=== PATIENT | female | born 1995 | race Caucasian/White ===

== ENCOUNTER 2019-11-09 11:35 | Outpatient (CLI) | payer OTHER | END 2019-11-09 12:46 | disposition home or self-care (01) | LOC: LC 11:35 | PROVIDERS: ATTEND Obstetrics & Gynecology Gynecology | PROC: 4A1HXCZ Monitoring of Products of Conception, Cardiac Rate, External Approach (ICD-10-PCS; principal; 2019-11-09) | DX: Z36.89 Encounter for other specified antenatal screening (principal); Z3A.34 34 weeks gestation of pregnancy | CPT/HCPCS: 59025 ==

== ENCOUNTER 2019-12-11 04:56 | Inpatient (IN) | payer OTHER ==
[2019-12-08 11:20] LABS: ABSOLUTE EOSINOPHILS # (AUTO) 0.1 10^3/uL (0.0-0.6); ABSOLUTE LYMPHOCYTES (AUTO) 1.9 10^3/uL (0.5-4.7); ABSOLUTE NEUT (AUTO) 5.7 10^3/uL (1.7-8.2); BASOPHILS % (AUTO) 0.3 % (0-2); EOSINOPHILS % (AUTO) 1.3 % (0-6); HEMATOCRIT 31.4 % (36.0-47.0); HEMOGLOBIN 10.2 g/dL (12.0-15.5); LYMPHOCYTES % (AUTO) 22.3 % (13-45); MEAN CORPUSCULAR HEMOGLOBIN 26.3 pg (27.0-33.4); MEAN CORPUSCULAR HGB CONC 32.6 g/dL (32.0-36.0); MEAN CORPUSCULAR VOLUME 81 fl (80-97); MONOCYTES % (AUTO) 11.1 % (3-13); PLATELET COUNT 264 10^3/uL (150-450); RED CELL DISTRIBUTION WIDTH 17.6 % (11.5-14.0); TOTAL CELLS COUNTED % (AUTO) 100 %; WHITE BLOOD COUNT 8.7 10^3/uL (4.0-10.5)
[2019-12-08 11:33] LABS: APPEARANCE,URINE SLIGHTLY-CLOUDY; BILIRUBIN,URINE NEGATIVE (NEGATIVE); COLOR,URINE YELLOW; GLUCOSE, URINE NEGATIVE (NEGATIVE); KETONES,URINE NEGATIVE (NEGATIVE); LEUKOCYTE ESTERASE,URINE NEGATIVE (NEGATIVE); NITRITE,URINE NEGATIVE (NEGATIVE); PROTEIN,URINE NEGATIVE (NEGATIVE); URINE SPECIFIC GRAVITY 1.011; UROBILINOGEN,URINE NEGATIVE mg/dL (<2.0)
[2019-12-08 11:57] LABS: URINE AMPHETAMINES SCREEN NEGATIVE; URINE BARBITURATES SCREEN NEGATIVE; URINE BENZODIAZEPINES SCREEN NEGATIVE; URINE COCAINE SCREEN NEGATIVE; URINE MARIJUANA (THC) SCREEN NEGATIVE; URINE METHADONE SCREEN NEGATIVE; URINE PHENCYCLIDINE SCREEN NEGATIVE
[~2019-12-11 04:56] MED LIST: RINGERS SOLUTION,LACTATED 1,000 ML IV ONE; RINGERS SOLUTION,LACTATED 1,000 ML IV PRN
[2019-12-11] MEDS ORDERED: CEFAZOLIN SODIUM 2 GM in DEXTROSE 5%-WATER 100 ML IV PRN (05:00)
[2019-12-11] MEDS ORDERED: CEFAZOLIN INJ 1 GM VIAL ONE (05:13)
[2019-12-11] MEDS ORDERED: FENTANYL CITRATE INJ/PF 100 MCG/2 ML AMPUL ONE (07:18)
[2019-12-11] MEDS ORDERED: METHYLERGONOVINE MALEATE INJ/PF 0.2 MG/1 ML AMPULE ONE (07:18)
[2019-12-11] MEDS ORDERED: MIDAZOLAM 2 MG/2 ML INJ ONE (07:18)
[2019-12-11] MEDS ORDERED: ACETAMINOPHEN 1,000 MG/100 ML RTUPB IV ONE (07:18)
[2019-12-11] MEDS ORDERED: KETOROLAC TROMETHAMINE INJ/PF 30 MG/1 ML SDV ONE (07:18)
[2019-12-11] MEDS ORDERED: ONDANSETRON HCL INJ/PF 4 MG/2 ML SDV ONE (07:18)
[2019-12-11] MEDS ORDERED: OXYTOCIN 10 UNIT/ML VIAL ONE (07:18)
[2019-12-11] MEDS ORDERED: EPHEDRINE SULFATE INJ 50 MG/1 ML AMPULE ONE (07:19)
[2019-12-11] MEDS ORDERED: MORPHINE SULFATE 10 MG/ML INJ IV PRN ×2 (08:21→08:52)
[2019-12-11] MEDS ORDERED: FENTANYL CITRATE INJ/PF 100 MCG/2 ML AMPUL IV PRN ×3 (08:21)
[2019-12-11] MEDS ORDERED: OXYCODONE-ACETAMINOPHEN 5-325 MG TABLET PO PRN ×3 (08:21→08:52)
[2019-12-11] MEDS ORDERED: DIPHENHYDRAMINE HCL 50 MG/ML VIAL IV PRN (08:21)
[2019-12-11] MEDS ORDERED: MEPERIDINE HCL/PF INJ 25 MG/1 ML DISP.SYRIN IV PRN (08:21)
[2019-12-11] MEDS ORDERED: ONDANSETRON HCL INJ/PF 4 MG/2 ML SDV IV PRN (08:21)
[2019-12-11] MEDS ORDERED: PROMETHAZINE HCL INJ 25 MG/1 ML VIAL IV PRN ×3 (08:21→08:52)
[2019-12-11] MEDS ORDERED: ACETAMINOPHEN 325 MG TABLET PO PRN (08:52)
[2019-12-11] MEDS ORDERED: RINGERS SOLUTION,LACTATED 1,000 ML IV PRN (08:52)
[2019-12-11] MEDS ORDERED: MEASLES,MUMPS&RUBELLA VACC/PF 0.5 ML VIAL SUBCUT PRN (08:52)
[2019-12-11] MEDS ORDERED: OXYTOCIN/NORMAL SALINE 20 UNIT/1,000 ML RTUINJ IV PRN (08:52)
[2019-12-11] MEDS ORDERED: ACETAMINOPHEN 1,000 MG/100 ML RTUPB IV PRN (08:52)
[2019-12-11] MEDS ORDERED: DIPH/PERTUSS(ACELL)/TETANUS VAC/PF 0.5 ML SYR (>=10YO) IM PRN (08:52)
--- NOTE | 2019-12-11 08:57 | Operative Report ---
Operative Report DATE OF SURGERY: 12/11/19 PREOPERATIVE DIAGNOSIS: IUP @ 39 3/7 wks, previous c/section POSTOPERATIVE DIAGNOSIS: same OPERATION: repeat low transverse hysterotomy section SURGEON: REMY SHAHID ANESTHESIA: Spinal TISSUE REMOVED OR ALTERED: none COMPLICATIONS: none ESTIMATED BLOOD LOSS: 750 cc INTRAOPERATIVE FINDINGS: Female cephalic presentation Apgars of 8 and 9 PROCEDURE: PROCEDURE IN DETAIL: The patient was taken to the operating room, prepared and draped in a normal sterile fashion in a supine position with a leftward tilt. A transverse skin incision was made with a scalpel and carried through to the underlying layer of fascia with the same scalpel. The fascia was excised in the midline and extended laterally with Monet. The fascia was then dissected from the rectus muscle sharply with Monet and the rectus muscle was divided and the peritoneal cavity was entered sharply with the same Metzenbaum. With good visualization of the bladder and the uterus the bladder blade was inserted. The hysterotomy was nicked with a scalpel and extended laterally with surgeon finger fraction. The infant was then delivered atraumatically. The nose and mouth were suctioned with a suction bulb, the cord was clamped and cut and handed off to awaiting pediatricians. Cord blood was collected. The placenta was removed manually. The uterus was exteriorized and cleared of clots and debris. The hysterotomy was closed with 0 Monocryl in a running, locked fashion. A second layer of the same suture was used to imbricate to ensure hemostasis. The uterus was returned to the abdomen and peritoneal cavity was cleared of clots and debris. Single layer of Interceed was placed on the hysterotomy for adhesion barrier. the rectus muscle and peritoneum were repaired with mattress stitch of 2-0 Chromic. The fascia was closed with 0-Vicryl. The subcutaneous layer was closed with plain catgut and the skin was closed with 4-0 Vicryl. The patient tolerated the procedure well. Sponge, lap, and needle counts correct x2 and the patient was taken to recovery in stable condition.
[2019-12-11] MEDS ORDERED: MEPERIDINE HCL/PF INJ 25 MG/1 ML DISP.SYRIN ONE (09:02)
[2019-12-11] MEDS ORDERED: HYDROMORPHONE HCL INJ/PF 2 MG/ML AMPULE IV ONE (10:03)
[2019-12-11] MEDS ORDERED: HYDROMORPHONE HCL INJ/PF 2 MG/ML AMPULE ONE (10:04)
[2019-12-11] MEDS: OXYCODONE-ACETAMINOPHEN 5-325 MG TABLET PO PRN ×2 (13:13→17:55)
[2019-12-11] MEDS: KETOROLAC TROMETHAMINE INJ/PF 30 MG/1 ML SDV IV SCH ×2 (14:56→21:48)
[2019-12-11] MEDS: PRENATAL VITAMIN W DHA CAPSULE PO SCH (16:18)
[2019-12-11] MEDS: DOCUSATE SODIUM 100 MG CAPSULE PO SCH ×2 (16:18→17:55)
[2019-12-12] MEDS: KETOROLAC TROMETHAMINE INJ/PF 30 MG/1 ML SDV IV SCH (05:45)
[2019-12-12 07:03] LABS: HEMATOCRIT 25.5 % (36.0-47.0); HEMOGLOBIN 8.4 g/dL (12.0-15.5); MEAN CORPUSCULAR HEMOGLOBIN 26.5 pg (27.0-33.4); MEAN CORPUSCULAR HGB CONC 32.9 g/dL (32.0-36.0); MEAN CORPUSCULAR VOLUME 80 fl (80-97); PLATELET COUNT 240 10^3/uL (150-450); RED BLOOD COUNT 3.17 10^6/uL (3.72-5.28); RED CELL DISTRIBUTION WIDTH 19.2 % (11.5-14.0); WHITE BLOOD COUNT 11.6 10^3/uL (4.0-10.5)
[2019-12-12] MEDS: SIMETHICONE 80 MG TAB.CHEW PO PRN ×2 (08:30→21:53)
[2019-12-12] MEDS: PRENATAL VITAMIN W DHA CAPSULE PO SCH (09:43)
[2019-12-12] MEDS: DOCUSATE SODIUM 100 MG CAPSULE PO SCH ×2 (09:43→17:18)
--- NOTE | 2019-12-12 10:43 | PDOC PROGRESS REPORT ---
Subjective-OB Progress Note for:: 12/12/19 Subjective: Pt doing well, no concerns. She reports light bleeding, reg diet with +flatus and voiding well. Physical Exam (OB) Vital Signs: Temp Pulse Resp BP Pulse Ox 98.3 F 83 18 122/78 100 12/12/19 07:53 12/12/19 07:53 12/12/19 07:53 12/12/19 07:53 12/12/19 07:53 Intake & Output 12/11/19 12/12/19 12/13/19 06:59 06:59 06:59 Intake Total 480 Output Total 950 Balance -470 Weight 77.564 kg - PIH/Pre-Eclampsia DTR's: 1 + Clonus: Negative Headache: Absent Epigastric Pain: No Visual Changes: No - Dressing Removed: No - opsite Incision: Dressing - Lochia Lochia Amount: Small 10-25 ml Lochia Color: Rubra/Red - Abdomen Description: Soft, Round Hernia Present: No Fundal Description: Firm, Midline Fundal Height: u/u - u/2 Objective-Diagnostic Laboratory: 12/12/19 06:43 12/12/19 06:43 WBC 11.6 H RBC 3.17 L Hgb 8.4 L Hct 25.5 L MCV 80 MCH 26.5 L MCHC 32.9 RDW 19.2 H Plt Count 240 Assessment and Plan(PN) - Assessment and Plan (1) delivery delivered Is this a current diagnosis for this admission?: Yes (2) Normal course Is this a current diagnosis for this admission?: Yes - Time Spent with Patient Time with patient: Less than 15 minutes Medications reviewed and adjusted accordingly: Yes - Disposition Anticipated Discharge: Home Within: within 24 hours
[2019-12-12] MEDS: IBUPROFEN 800 MG TABLET PO SCH ×2 (11:46→17:18)
[2019-12-13] MEDS: IBUPROFEN 800 MG TABLET PO SCH ×3 (00:02→13:24)
[2019-12-13] MEDS: DOCUSATE SODIUM 100 MG CAPSULE PO SCH (10:47)
[2019-12-13] MEDS: PRENATAL VITAMIN W DHA CAPSULE PO SCH (10:47)
[2019-12-13] MEDS: SIMETHICONE 80 MG TAB.CHEW PO PRN (10:49)
--- NOTE | 2019-12-13 11:35 | PDOC DISCHARGE SUMMARY ---
Impression - Admit/DC Date/PCP Admission Date/Primary Care Provider: 12/11/19 04:56 REMY SHAHID MD Discharge Date: 12/13/19 - POD #2, doing well, desires to go home today. AB+ Rubella immune, - Discharge Diagnosis (1) Acute blood loss as cause of postoperative anemia Is this a current diagnosis for this admission?: Yes (2) delivery delivered Is this a current diagnosis for this admission?: Yes (3) Normal course Is this a current diagnosis for this admission?: Yes - Additional Information Resuscitation Status: Full Code Discharge Diet: As Tolerated, Regular Discharge Activity: Activity As Tolerated, No Driving, No Lifting Over 10 Pounds, Pelvic Rest Referrals: REMY SHAHID MD [Primary Care Provider] - Prescriptions: Ibuprofen [Motrin 800 mg Tablet] 800 mg PO Q6 #60 tablet Oxycodone HCl/Acetaminophen [Percocet 5-325 mg Tablet] 1 tab PO Q4HP PRN #30 tablet PRN Reason: Pain Scale Of 4 Home Medications: 95/Iron Fum/Folic/Dha [ + Dha Combo Pack] 1 cap PO DAILY 11/09/19 Iron,Carb/Vit C/Vit B12/Folic [Iron 100 Plus Tablet] 1 each PO DAILY 12/08/19 Ibuprofen [Motrin 800 mg Tablet] 800 mg PO Q6 #60 tablet 12/13/19 Oxycodone HCl/Acetaminophen [Percocet 5-325 mg Tablet] 1 tab PO Q4HP PRN #30 tablet 12/13/19 HPI Reason(s) for Admission: Ceasarean Section-Repeat Procedures: Ultrasound Intrapartum Procedure(s): : Low Cervical, Transverse Results Laboratory Results: WBC 11.6 10^3/uL (4.0-10.5) H 12/12/19 06:43 RBC 3.17 10^6/uL (3.72-5.28) L 12/12/19 06:43 Hgb 8.4 g/dL (12.0-15.5) L 12/12/19 06:43 Hct 25.5 % (36.0-47.0) L 12/12/19 06:43 MCV 80 fl (80-97) 12/12/19 06:43 MCH 26.5 pg (27.0-33.4) L 12/12/19 06:43 MCHC 32.9 g/dL (32.0-36.0) 12/12/19 06:43 RDW 19.2 % (11.5-14.0) H 12/12/19 06:43 Plt Count 240 10^3/uL (150-450) 12/12/19 06:43 Lymph % (Auto) 22.3 % (13-45) 12/08/19 10:07 [place] % (Auto) 11.1 % (3-13) 12/08/19 10:07 Eos % (Auto) 1.3 % (0-6) 12/08/19 10:07 Baso % (Auto) 0.3 % (0-2) 12/08/19 10:07 Absolute Neuts (auto) 5.7 10^3/uL (1.7-8.2) 12/08/19 10:07 Absolute Lymphs (auto) 1.9 10^3/uL (0.5-4.7) 12/08/19 10:07 Absolute Monos (auto) 1.0 10^3/uL (0.1-1.4) 12/08/19 10:07 Absolute Eos (auto) 0.1 10^3/uL (0.0-0.6) 12/08/19 10:07 Absolute Basos (auto) 0.0 10^3/uL (0.0-0.2) 12/08/19 10:07 Seg Neutrophils % 65.0 % (42-78) 12/08/19 10:07 Urine Color YELLOW 12/08/19 10:07 Urine Appearance SLIGHTLY-CLOUDY 12/08/19 10:07 Urine pH 6.0 (5.0-9.0) 12/08/19 10:07 Ur Specific [place] 1.011 12/08/19 10:07 Urine Protein NEGATIVE mg/dL (NEGATIVE) 12/08/19 10:07 Urine Glucose (UA) NEGATIVE mg/dL (NEGATIVE) 12/08/19 10:07 Urine Ketones NEGATIVE mg/dL (NEGATIVE) 12/08/19 10:07 Urine Blood NEGATIVE (NEGATIVE) 12/08/19 10:07 Urine Nitrite NEGATIVE (NEGATIVE) 12/08/19 10:07 Urine Bilirubin NEGATIVE (NEGATIVE) 12/08/19 10:07 Urine Urobilinogen NEGATIVE mg/dL (<2.0) 12/08/19 10:07 Ur Leukocyte Esterase NEGATIVE (NEGATIVE) 12/08/19 10:07 Urine WBC (Auto) 0 /HPF 12/08/19 10:07 Urine RBC (Auto) 0 /HPF 12/08/19 10:07 Squamous Epi Cells Auto 2 /HPF 12/08/19 10:07 Urine Mucus (Auto) RARE /LPF 12/08/19 10:07 Urine Ascorbic Acid NEGATIVE (NEGATIVE) 12/08/19 10:07 Urine Opiates Screen NEGATIVE 12/08/19 10:07 Urine Methadone Screen NEGATIVE 12/08/19 10:07 Ur Barbiturates Screen NEGATIVE 12/08/19 10:07 Ur Phencyclidine Scrn NEGATIVE 12/08/19 10:07 Ur Amphetamines Screen NEGATIVE 12/08/19 10:07 U Benzodiazepines Scrn NEGATIVE 12/08/19 10:07 Urine Cocaine Screen NEGATIVE 12/08/19 10:07 U Marijuana (THC) Screen NEGATIVE 12/08/19 10:07 Blood Type AB POSITIVE 12/11/19 06:00 Antibody Screen NEGATIVE 12/11/19 06:00 Plan Plan of Treatment: d/c to home, f/up with [facility] in once week for incision check
[2019-12-13] MEDS ORDERED: FERROUS SULFATE 325 MG TABLET PO SCH (12:00)
[2019-12-13 12:42] VITALS: BP 120/74
== END 2019-12-13 13:59 | disposition home or self-care (01) | DRG 787 ==
LOC: 2S 04:56
PROVIDERS: ADMIT Obstetrics & Gynecology; ATTEND Obstetrics & Gynecology
PROC: 10D00Z1 Extraction of Products of Conception, Low, Open Approach (ICD-10-PCS; principal; 2019-12-11 07:45)
DX: O34.211 Maternal care for low transverse scar from previous cesarean delivery (principal); D62 Acute posthemorrhagic anemia; O90.81 Anemia of the puerperium; Z3A.39 39 weeks gestation of pregnancy; Z37.0 Single live birth
CPT/HCPCS: 1961; 36415; 59025; 80307; 81001; 85025; 85027; 86850; 86900; 86901; 94799; J0131; J0690; J1170; J1885; J2175; J2210; J2250; J2405; J2590; J3010; J3490; J7060; J7120